=== PATIENT | male | born 1985 | race Caucasian/White ===

== ENCOUNTER 2019-06-24 15:39 | Emergency (ER) | payer SELFPAY ==
[~2019-06-24] VITALS: Ht 172 cm; Wt 72.5 kg
--- NOTE | 2019-06-24 15:56 | ED Integumentary General ---
General Chief Complaint: Skin/Wound Problems Stated Complaint: RASH Nursing Triage Note: COMPLAINS OF CIRCULAR AREAS ON HIS HANDS THAT HAS JUST APPEARED AND A RASH ON HIS PENIS X1 MONTH THAT IS NOW ITCHING. Source: patient Exam Limitations: no limitations History of Present Illness Date Seen by Provider: Jun 24, 2019 Time Seen by Provider: 15:50 Initial Comments Patient is a 34-year-old male that presents with circular erythema lesions on bilateral hands, bilateral soles of feet, and penis times one month. Patient reports that he did some research online and found out that it could possibly be the methamphetamines trying to leave his body which he discontinued at that time but the areas have not improved. Patient reports that the areas on his hand appeared to be calluses at first but he scratched the areas and no new skin has formed in the area remains reddened. Patient reports that he has been putting antifungal medication on the areas for the past month without improvement. Patient reports having a history of hepatitis C. He denies any discharge from his penis, hx of STIs, using shared or dirty needles for IV drugs, or history of HIV. He has used IV Meth but reports buying needles at the pharmacy. Denies any new sexual partners or partners with rashes or known STIs. Timing/Duration: other (times one month) Severity: mild Location: hands, feet, genitalia Possible Cause: no cause identified Associated Symptoms: No denies symptoms, No blisters, No change in skin texture, No edema, No fever, No flushing, No headache, No hives, No jaundice, No malaise, No nasal congestion, No numbness, No pallor, No paresthesia, No petechiae, No rash, No sore throat, No swelling/mass/lumps, No tingling, No other Allergies and Home Medications Allergies Coded Allergies: No Known Drug Allergies (Unverified , 06/24/19) Home Medications No Active Prescriptions or Reported Meds Patient Home Medication List Home Medication List Reviewed: Yes Review of Systems Review of Systems Constitutional: no symptoms reported, see HPI EENTM: see HPI, no symptoms reported Respiratory: no symptoms reported, see HPI Cardiovascular: no symptoms reported, see HPI Gastrointestinal: no symptoms reported, see HPI Genitourinary: no symptoms reported, see HPI Musculoskeletal: no symptoms reported, see HPI Skin: see HPI, other (erythemic circular areas on the hands, feet and genitalia) Psychiatric/Neurological: No Symptoms Reported, See HPI Endocrine: No Symptoms Reported, See HPI Hematologic/Lymphatic: No Symptoms Reported, See HPI Past [id number]-Rppcyy Hx Past Med/Social Hx: Reviewed and Corrections made Patient Social History Alcohol Use: Denies Use Recreational Drug Use: Yes (METH) Smoking Status: Current Someday Smoker Recent Foreign Travel: No Contact w/Someone Who Travel: No Recent Infectious Disease Expo: No Recent Hopitalizations: No Seasonal Allergies Seasonal Allergies: No Past Medical History Orthopedic Respiratory: No Cardiac: No Neurological: No Genitourinary: No Gastrointestinal: Yes (HEP C+) Hepatitis (C) Musculoskeletal: No Endocrine: No HEENT: No Cancer: No Did You Recieve Any Treatments: No Psychosocial: No Integumentary: Yes Recent Skin Changes Physical Exam Vital Signs Vital Signs - First Documented 06/24/19 15:43 Temp 37.0 Pulse 94 Resp 16 B/P (MAP) 116/75 (89) Pulse Ox 98 O2 Delivery Room Air Capillary Refill : Less Than 3 Seconds General Appearance: WD/WN, no apparent distress HEENT: PERRL/EOMI, normal ENT inspection, TMs normal Neck: non-tender, full range of motion, normal inspection Cardiovascular: normal peripheral pulses, regular rate, rhythm, no edema, no gallop, no JVD, no murmur Respiratory: chest non-tender, lungs clear, normal breath sounds, no respirato ry distress, no accessory muscle use Gastrointestinal: normal bowel sounds, non tender, soft Back: normal inspection, no vertebral tenderness Extremities: normal range of motion, non-tender Neurologic/Psychiatric: 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, no motor/sensory deficits, alert, normal mood/affect, oriented x 3 Skin: normal color, other (erythemic reddened areas on bilateral hands, bilateral feet, genitalia) Skin Problem Location: other (hands, feet and genitalia) Skin Problem Character: erythema, lesion (ulcer), thickening Lymphatic: no adenopathy Progress/Results/Core Measures Results/Orders Lab Results Laboratory Tests Test 06/24/19 16:29 Range/Units My Orders Orders - TEENA CARPENTER Syphilis Antibody Screen (06/24/19 16:09) Hiv 1&2 Antibody (06/24/19 16:15) Hepatitis C Antibody (06/24/19 16:15) Penicillin G Benzathine Inject (Bicillin (06/24/19 16:30) Penicillin G Benzathine Inject (Bicillin (06/24/19 16:30) Medications Given in ED Current Medications Medications Dose Ordered Sig/Katt Route Start Time Stop Time Status Last Admin Dose Admin Penicillin G Benzathine 1,200,000 unit ONCE ONCE IM 06/24/19 16:30 06/24/19 16:31 DC 06/24/19 16:34 1,200,000 UNIT Penicillin G Benzathine 1,200,000 unit ONCE ONCE IM 06/24/19 16:30 06/24/19 16:31 DC 06/24/19 16:35 1,200,000 UNIT Vital Signs/I&O 06/24/19 06/24/19 15:43 16:50 Temp 37.0 Pulse 94 84 Resp 16 16 B/P (MAP) 116/75 (89) 115/76 Pulse Ox 98 98 O2 Delivery Room Air Room Air Blood Pressure Mean: 89 Progress Progress Note : Time: 15:50 Progress Note Patient seen and evaluated, rash appeared to be syphilis. Discussed this at length with the patient and reviewed risk factors. Discussed with Dr. Ibarra and agreed to test and treat empirically. 1630 discharge instructions and return precautions reviewed with the patient. Encouraged she establish follow-up with the [facility]. Departure Impression Primary Impression: Syphilis Disposition: 01 HOME, SELF-CARE Condition: Improved Departure-Patient Inst. Decision time for Depature: 16:15 Referrals: [facility] [place] Primary Care Physician NO,LOCAL PHYSICIAN (PCP) Primary Care Physician Patient Instructions: Syphilis (DC) Add. Discharge Instructions: Discontinue IV drug use or only use clean needles. Avoid sexual contacts until labs return. Clean lesions with soap and water, do not pick or scratch them Establish care with a primary care provider at [facility]. Return to the emergency department for new, urgent health care needs. All discharge instructions reviewed with patient and/or family. Voiced understanding. Scripts No Active Prescriptions or Reported Meds TEENA CARPENTER Jun 24, 2019 15:56
[2019-06-24] MEDS ORDERED: PEN G BENZ (BICILLIN LA) 1.2 M UN/2 ML SYR IM ONE ×2 (16:30)
[2019-06-24 16:50] VITALS: BP 115/76
[2019-06-25 22:07] LABS: HEPATITIS C ANTIBODY C Reactive (Non-Reactive)
== END 2019-06-24 16:50 | disposition home or self-care (01) ==
LOC: ER 15:40
DX: A53.9 Syphilis, unspecified (principal); B19.20 Unspecified viral hepatitis C without hepatic coma; F17.200 Nicotine dependence, unspecified, uncomplicated
CPT/HCPCS: 36415; 86592; 86703; 86780; 86803; 96372; 99284